=== PATIENT | male | born 1945 | race Caucasian/White ===

== ENCOUNTER → 2017-07-21 | Outpatient (CLI) | payer MEDICARE, BC ==
[~2017-07-21] MED LIST: ALB6.7R INH; ALBU8.5H12 IH; ASPI-1471 PO; ATR80PT PO; AZIT-17 PO; BENZ100C4 PO; BLOO-1061 MC; BLOO-1318 MC; BLOO-1337 MC; CARV25TA78 PO; CEFU500T50 PO; CLOP75TA PO; DIPH0.5D12 IM; EZET10TA41 PO; FLU180SY9 IM; FLU60VIA21 IM ONLY; FLUT16SP19 NS; GLIM2TAB43 PO; GLIP-152 PO; GLIP10TA26 PO; LANC-1147 MC; LANC-1149 MC; LISI-362 PO; METF500T4 PO; MULT-27 PO; NIAC500T85 PO; NIT4 SL; OMEG100027 PO; OMEG500C7 PO; OXYC-373 PO; OXYC-865 PO; PNEI IJ; PNEU0.5D3 IM; PRED-1 PO; PRED5DRO34 OP; PSYL0.5241 PO; ROBC PO; SITA100T PO; VAR05PT PO; VARE1TAB3 PO; [UNRECOGNIZED DRUG - CODE] MC; [UNRECOGNIZED DRUG - CODE] MC
--- NOTE | 2017-07-21 15:19 | RADIOLOGY IMAGING REPORT ---
FACILITY: [facility] PATIENT NAME: Pro Wilkins : 1945 MR: [id number] V: [id number] EXAM DATE: ORDERING PHYSICIAN: GRIFFIN MONTEIRO TECHNOLOGIST: [place] [facility] [place] Pro Wilkins : 1945 Visit/Account:[id number] Date of Sevice: 07/21/2017 EXAMINATION: Right lower extremity duplex Doppler arterial ultrasound HISTORY: Prior arterial surgery to the right leg. PAD. Limb pain. Coldness and numbness. COMPARISON: None. FINDINGS: Peak systolic velocities (cm/s): Common femoral artery: 198 Profunda femoral artery: 90 Proximal SFA: 85 Mid SFA: 20 Distal SFA: 37 Proximal popliteal: 55 Distal popliteal: 39 Peritoneal: 21 Proximal posterior tibial: 33 Mid posterior tibial: 28 Distal posterior tibial: 25 Anterior tibial: 33 Dorsalis pedis: 17 There is significant atherosclerotic plaque throughout the visualized right lower extremity arteries. Interrogated segments do appears patent, without any direct evidence of thrombosis. There is significant drop-off in velocities at the mid SFA with a parvus-tardus waveform suggesting s ignificant SFA stenosis. Waveforms distal to this level are also significantly blunted and monophasic related to the upstream disease. Waveforms of the common femoral artery and proximal SFA are also monophasic which may indicate inflow disease along the iliac arteries. IMPRESSION: 1. Imaged right lower extremity arteries appear patent, but with evidence of significant flow-limitin g disease. 2. There is evidence of flow-limiting stenosis along the SFA with a significant drop-off in velocitie s at the mid SFA and blunted monophasic waveforms distal to this level. 3. Waveforms along the common femoral artery and proximal SFA are also monophasic which may indicate inflow disease along the iliac arteries. Report Dictated By: Edgar Lao MD at 07/21/2017 3:00 PM Report E-Signed By: Edgar Lao MD at 07/21/2017 3:14 PM WSN:[id number]
== END ==
LOC: RAD 11:24
PROVIDERS: ATTEND Internal Medicine Cardiovascular Disease
DX: I70.201 Unspecified atherosclerosis of native arteries of extremities, right leg (principal)

== ENCOUNTER → 2017-12-11 | Outpatient (CLI) | payer MEDICARE, BC | LOC: LAB 09:02 | PROVIDERS: ATTEND Internal Medicine Cardiovascular Disease | DX: I70.219 Atherosclerosis of native arteries of extremities with intermittent claudication, unspecified extremity (principal) | CPT/HCPCS: 36415; 82310; 82374; 82435; 82565; 82947; 84132; 84295; 84520; 85027 ==

== ENCOUNTER → 2018-02-12 | Outpatient (CLI) | payer MEDICARE, BC ==
[~2018-02-12] MED LIST changes: +VARE1TAB4 PO
[2018-02-12 06:36] LABS: PLATELET COUNT, AUTOMATED 196 K/uL (150-450)
[2018-02-12 06:56] LABS: LDL CHOLESTEROL 75 mg/dl
== END ==
LOC: LAB 05:51
PROVIDERS: ATTEND Internal Medicine
DX: Z12.5 Encounter for screening for malignant neoplasm of prostate (principal); E11.9 Type 2 diabetes mellitus without complications; I10 Essential (primary) hypertension; E78.5 Hyperlipidemia, unspecified; I25.10 Atherosclerotic heart disease of native coronary artery without angina pectoris; I73.9 Peripheral vascular disease, unspecified
CPT/HCPCS: 36415; 83036; 84402; 84403; 84443; 84550; 85025; G0103; 82040; 82247; 82310; 82374; 82435; 82465; 82565; 82947; 83718; 84075; 84132; 84153; 84155; 84295; 84450; 84460; 84478; 84520

== ENCOUNTER → 2018-02-16 | Outpatient (REF) | payer MEDICARE, BC | LOC: ZZSENDIN 11:29 | PROVIDERS: ATTEND Internal Medicine | DX: E11.9 Type 2 diabetes mellitus without complications (principal); I10 Essential (primary) hypertension; I25.10 Atherosclerotic heart disease of native coronary artery without angina pectoris | CPT/HCPCS: 82043 ==

== ENCOUNTER → 2018-05-23 | Outpatient (CLI) | payer MEDICARE, BC ==
[~2018-05-23] MED LIST changes: +CIPR-214 PO; +GLIP-179 PO; -GLIP10TA26 PO
== END ==
LOC: LAB 14:26
PROVIDERS: ATTEND Urology
DX: L72.0 Epidermal cyst (principal)
CPT/HCPCS: 88305

== ENCOUNTER → 2018-05-23 | Outpatient (CLI) | payer MEDICARE, BC | LOC: LAB 08:44 | PROVIDERS: ATTEND Urology | DX: Z02.9 Encounter for administrative examinations, unspecified (principal) ==

== ENCOUNTER → 2018-05-24 | Outpatient (CLI) | payer MEDICARE, BC ==
[~2018-05-24] MED LIST changes: +IOPAMIDOL 76% 75 ML INFUS BTL 75 ML ONE
--- NOTE | 2018-05-24 11:42 | RADIOLOGY IMAGING REPORT ---
FACILITY: [facility] [place] PATIENT NAME: Pro Wilkins : 1945 MR: [id number] V: [id number] EXAM DATE: ORDERING PHYSICIAN: YUE SANCHEZ TECHNOLOGIST: Location: [facility] Patient: Pro Wilkins : 1945 Visit/Account:[id number] Date of Sevice: 05/24/2018 EXAMINATION: CT Abdomen W/O Contrast CT Abdomen W/ Contrast CT Pelvis W/O Contrast CT Pelvis W/ Contrast 05/24/2018 8:14 AM HISTORY: N20.0 nephrolithiasis TECHNIQUE: Spiral scans were obtained through the abdomen and pelvis before and during injection of nonionic iodinated intravenous contrast. Contrast: 75 mL of IV Isovue 370. One of the following dose optimization techniques was utilized in the performance of this exam: Autom ated exposure control; adjustment of the mA and/or kV according to the patient's size; or use of an i terative reconstruction technique. Specific details can be referenced in the facility's radiology C T exam operational policy. COMPARISON STUDIES: none. FINDINGS: Liver / biliary: Small gallstones dependently in the gallbladder. Liver is unremarkable. Pancreas: There are a few scattered punctate calcifications which may be postinflammatory. No pancre atic mass. No ductal dilatation. Spleen: Incidental small anterior accessory splenule with a tiny adjacent nodule which is probably a secondary splenule. Adrenal glands: Mild low-density benign-appearing nodularity of the left adrenal. Negative right. Kidneys / retroperitoneum: Bilateral nonobstructive intrarenal nephrolithiasis. Irregular branching probably staghorn calculus in the right lower pole with the largest AP dimension of 3.3 cm. Largest stone on the left is in the lower pole measuring 1.2 cm. No ureteral stone or dilatation on either s samantha. Benign-appearing cortical cysts bilaterally larger on the right than the left including an exop hytic 3.4 cm upper pole cyst and an exophytic 3.6 cm lower pole cyst. Pelvic structures: Coarse benign-appearing calcifications in the prostate. Bladder is mildly thic k-walled. Bowel / peritoneum / mesenteries: Mild diverticulosis of the sigmoid. No acute finding. Normal appe ndix. Vessels: Atherosclerosis including coronary calcification. Infrarenal abdominal aorta dilates slight ly but is not aneurysmal. Bilateral indwelling common iliac artery stents. Stent in the proximal ri ght SFA. Musculoskeletal / Body wall: Degenerative changes in the spine. Small sclerotic posterior left iliac bony foci are indeterminate but likely benign. Lymph node assessment: negative Lower chest: negative IMPRESSION: 1. Bilateral nonobstructive intrarenal nephrolithiasis. Largest stone in the lower pole on the righ t has a staghorn configuration and measures 3.3 cm. 2. Benign-appearing bilateral renal cortical cysts. 3. Cholecystolithiasis. Report Dictated By: Benny Gaston MD at 05/24/2018 10:13 AM Report E-Signed By: Benny Gaston MD at 05/24/2018 11:38 AM SERGION:[email or web address]
== END ==
LOC: CT 02:18
PROVIDERS: ATTEND Urology
DX: Z01.812 Encounter for preprocedural laboratory examination (principal); N28.1 Cyst of kidney, acquired; K80.20 Calculus of gallbladder without cholecystitis without obstruction
CPT/HCPCS: 36415; 74178; 82565; Q9967

== ENCOUNTER → 2018-05-24 | Outpatient (CLI) | payer MEDICARE, BC ==
[~2018-05-24] MED LIST changes: -IOPAMIDOL 76% 75 ML INFUS BTL 75 ML ONE
--- NOTE | 2018-05-24 11:48 | RADIOLOGY IMAGING REPORT ---
FACILITY: [facility] - [place] PATIENT NAME: Pro Wilkins : 1945 MR: [id number] V: [id number] EXAM DATE: ORDERING PHYSICIAN: VLADIMIR STEWART TECHNOLOGIST: Location: [facility] Patient: Pro Wilkins : 1945 Visit/Account:[id number] Date of Sevice: 05/24/2018 CAROTID HISTORY: Bilateral carotid bruit COMPARISON: 06/15/2017 FINDINGS: Grayscale, duplex and color Doppler interrogation of the extracranial carotid and vertebral arteries was performed bilateral. On the right, peak systolic velocities within the common and internal carotid arteries are 88 and 135 cm/sec respectively. There is moderate diffuse calcified atherosclerotic plaque present throughout the proximal internal carotid artery and carotid bulb. Doppler waveforms are within normal limits ho wever.. Antegrade flow within the common, internal and external carotid arteries as well as vertebra l artery. ICA/CCA ratio 0.7. On the left, peak systolic velocities within the common and internal carotid arteries are 123 and 96 cm/sec respectively. There is moderate diffuse calcified atherosclerotic plaque present throughout t he distal common carotid artery and proximal internal carotid artery. Mildly elevated velocities are present but Doppler waveforms are within normal limits.. Antegrade flow within the common, internal and external carotid arteries as well as vertebral artery. ICA/CCA ratio 1.3. IMPRESSION: On the left, by velocity criteria there is less than 50% stenosis present, however, this likely appro aches close to 50% given the degree of calcified plaque present. On the right, moderate plaque is present but no hemodynamically significant stenosis is identified. Velocity criteria are extrapolated from diameter data as defined by the Society of Radiologists in Ul trasound Consensus Conference Radiology 2003; 229;340-346 Report Dictated By: Darryl Barron at 05/24/2018 11:30 AM Report E-Signed By: Darryl Barron at 05/24/2018 11:44 AM WSN:[id number]
== END ==
LOC: US 02:19
PROVIDERS: ATTEND Internal Medicine
DX: I65.23 Occlusion and stenosis of bilateral carotid arteries (principal)
CPT/HCPCS: 93880

== ENCOUNTER → 2018-06-04 | Outpatient (CLI) | payer MEDICARE, BC ==
[2018-06-04 09:53] LABS: PLATELET COUNT, AUTOMATED 208 K/uL (150-450)
--- NOTE | 2018-06-04 09:58 | EKG ---
FACILITY: [facility] PATIENT NAME: KIM GUZMAN : [id number] MR: [id number] V: [id number] EXAM DATE: ORDERING PHYSICIAN: YUE SANCHEZ TECHNOLOGIST: LIZ Test Reason : PRE OP Blood Pressure : / mmHG Vent. Rate : 064 BPM Atrial Rate : 064 BPM P-R Int : 140 ms QRS Dur : 136 ms QT Int : 450 ms P-R-T Axes : 055 -87 073 degrees QTc Int : 464 ms Normal sinus rhythm Left axis deviation Right bundle branch block Abnormal ECG When compared with ECG of 15-MAR-2017 04:24, No significant change was found Confirmed by SHAYY CARTAGENA ([id number]) on 06/04/2018 3:23:06 PM Referred By: LAURA Confirmed By:SHAYY CARTAGENA
== END ==
LOC: LAB 09:29
PROVIDERS: ATTEND Urology
DX: Z01.818 Encounter for other preprocedural examination (principal); R94.31 Abnormal electrocardiogram [ECG] [EKG]
CPT/HCPCS: 36415; 82310; 82374; 82435; 82565; 82947; 83036; 84132; 84295; 84520; 85025; 93005

== ENCOUNTER 2018-06-18 00:18 | Day surgery (SDC) | payer MEDICARE, BC ==
[~2018-06-18] VITALS: Ht 182.9 cm; Wt 78.5 kg
[2018-06-18] VITALS (10 sets, daily range): BP systolic 128–167; BP diastolic 63–97
[~2018-06-18 00:18] MED LIST changes: +OXYC-854 PO
[2018-06-18 06:00] LABS: INR 0.97
[2018-06-18] MEDS ORDERED: LEVOFLOXACIN/D5W*500 MG/100 ML 100 ML IVPB ONE (06:30)
[2018-06-18] MEDS ORDERED: MIDAZOLAM 2 MG/2 ML VIAL IVP PRN (06:30)
[2018-06-18] MEDS ORDERED: FAMOTIDINE 20 MG TAB PO ONE (06:30)
[2018-06-18] MEDS ORDERED: NORMOSOL R SOLN(*) 1000 ML BAG 1,000 ML IV PRN ×2 (06:30)
[2018-06-18] MEDS ORDERED: LIDOCAINE/SOD BICARB 8.4% SYR ID ONE (06:30)
[2018-06-18] MEDS ORDERED: fentaNYL CITR 100 MCG/2 ML AMP ONE ×3 (07:10→09:20)
[2018-06-18] MEDS ORDERED: LIDOCAINE 2% IV 100 MG/5ML SYR ONE (07:10)
[2018-06-18] MEDS ORDERED: PROPOFOL EMUL(*) 10MG/ML 20 ML 20 ML ONE (07:11)
[2018-06-18] MEDS ORDERED: ONDANSETRON 4 MG/2 ML VIAL ONE (07:32)
[2018-06-18] MEDS ORDERED: BELLADONNA ALK/OPIUM 60MG SUPP PR ONE (08:52)
[2018-06-18] MEDS ORDERED: APAP/HYDROCODONE 325/5 TAB PO PRN (09:10)
[2018-06-18] MEDS ORDERED: HYDROmorphone HCL 2 MG/ML SDV IVP PRN (09:10)
--- NOTE | 2018-06-18 09:14 | Urology Discharge Summary ---
Discharge Summary Departure Weight (Pounds): 173 Condition: Improved Follow-Up Labs: Other (KUB IN 1 WEEK) Time Spent: < 30 min Discharge Instructions Home Meds Active Scripts Oxycodone Hcl/Acet 5/325 Mg (ENDOCET 5-325 TABLET) 1 Each Tablet, 1 EACH PO Q3- 6H for PAIN for 3 Days, #6 TAB Prov:YUE SANCHEZ MD 06/14/18 Glimepiride (GLIMEPIRIDE) 2 Mg Tablet, 2 MG PO QDAY, #30 TAB 3 Refills Prov:VLADIMIR STEWART MD 06/13/18 Sitagliptin Phosphate (JANUVIA) 100 Mg Tablet, 1 TAB PO QDAY, #90 TAB 3 Refills Prov:YUE SANCHEZ MD 05/24/18 Atorvastatin (LIPITOR) 80 Mg Tab, 1 TAB PO QDAY, #90 TAB 3 Refills Prov:VLADIMIR STEWART MD 02/19/18 Varenicline Tartrate (CHANTIX) 1 Mg Tablet, 1 MG PO BID, #60 TAB 3 Refills Prov:VLADIMIR STEWART MD 01/16/18 Carvedilol (CARVEDILOL) 25 Mg Tablet, 0.5 TAB PO BID, #180 TAB 3 Refills Prov:VLADIMIR STEWART MD 11/24/17 Lisinopril (LISINOPRIL) 10 Mg Tablet, 1 TAB PO QAM, #90 TAB 3 Refills Prov:VLADIMIR STEWART MD 11/24/17 Lancets (ONE TOUCH DELICA) 1 Each Each, EACH MC TID, #100 10 Refills Use three times a day to test blood sugar Prov:VLADIMIR STEWART MD 11/14/17 Clopidogrel Bisulfate (CLOPIDOGREL) 75 Mg Tablet, 1 TAB PO QAM, #90 TAB 3 Refills Prov:VLADIMIR STEWART MD 11/07/17 One Touch Ultra Test Strips (ONE TOUCH ULTRA TEST STRIPS) 1 Each Strip, 1 EACH MC TID, #100 STRIP 5 Refills use three times a day to test blood sugar Prov:VLADIMIR STEWART MD 10/05/17 Fluticasone Prop 50 Mcg Ns (FLONASE 50 MCG NS) 16 Gm [place].susp, 1 SPRAY NS BID, #1 BOT 4 Refills Prov:VLADIMIR STEWART MD 10/04/17 Metformin Hcl (METFORMIN HCL ER) 500 Mg Tab.er.24, 2 TAB PO BID, #360 TAB 4 Refills Prov:VLADIMIR STEWART MD 10/02/17 Blood-Glucose Meter (ONE TOUCH ULTRA 2) 1 Each Kit, 1 EACH MC TID, #1 use three times a day to test blood sugar Prov:VLADIMIR STEWART MD 05/13/16 Blood Sugar Diagnostic (TRUETEST TEST STRIPS) 1 Each Strip, 1 EACH MC TID, #100 STRIP 10 Refills Prov:VLADIMIR STEWART MD 10/20/15 Nitroglycerin (NITROSTAT) 0.4 Mg Subl, 1 TAB SL Q5MIN PRN for CHEST PAIN, #30 TAB Prov:VLADIMIR STEWART MD 10/12/15 Reported Medications [place]-3 Fatty Acids (FISH OIL CONCENTRATE) 1,000 Mg Capsule, 1000 MG PO TID, CAPSULE 10/19/15 Psyllium Husk (METAMUCIL) 0.52 Gm Capsule, 1 CAP PO BID, CAPSULE 10/12/15 Mu-Vits-Min Th/Lycopene/Lutein (CENTRUM SILVER TABLET) 1 Each Tablet, 1 TAB PO Q PM 10/12/15 Aspirin (ASPIR 81) 81 Mg Tablet., 1 TAB PO QDAY, TAB 04/02/14 Venous Thromboembolism Antithrombotics Is Pt On Any Antithrombotics?: Yes YUE SANCHEZ MD Jun 18, 2018 09:14
--- NOTE | 2018-06-18 09:24 | RADIOLOGY IMAGING REPORT ---
FACILITY: [facility] PATIENT NAME: Pro Wilkins : 1945 MR: [id number] V: [id number] EXAM DATE: ORDERING PHYSICIAN: YUE SANCHEZ TECHNOLOGIST: Location: Patient: Pro Wilkins : 1945 Visit/Account:[id number] Date of Sevice: 06/18/2018 C-ARM FLUORO 1 HR HISTORY: URETEROSCOPY STENT PLACEMENT COMPARISON: CT examination abdomen and pelvis May 24 FINDINGS: DOSE: Air kerma was 24.33 mGy. Fluoroscopic images demonstrate retrograde cannulation right ureter. Instrumentation is noted with i ntervention at the level of the stones in the right collecting system. Final images demonstrate uret eral stent placement. IMPRESSION: Intraprocedural fluoroscopy Report Dictated By: Keanu Silva MD at 06/18/2018 9:17 AM Report E-Signed By: Keanu Silva MD at 06/18/2018 9:19 AM WSN:[id number]
[2018-06-18] MEDS ORDERED: KETOROLAC 30 MG/ML VIAL IVP SCH (12:00)
--- NOTE | 2018-06-18 12:14 | OPERATIVE REPORT 1 ---
EVENT DATE: June 18, 2018 SURGEON: Todd Cuevas MD ANESTHESIOLOGIST: [*] ANESTHESIA: LMA general. WINDING INSPECTOR: None. PREOPERATIVE DIAGNOSIS Right renal calculi. POSTOPERATIVE DIAGNOSIS Right renal calculi. PROCEDURE PERFORMED Right ureteroscopic laser lithotripsy with stone extraction and stent placement. DESCRIPTION OF PROCEDURE The patient was brought to the operating room and after the adequate induction of general anesthesia, he was placed in the relaxed dorsal lithotomy position. Genitalia were scrubbed, prepped and draped in a sterile fashion. The bladder was examined with a rigid cystoscope. There were no mucosal abnormalities seen within the bladder. A sensor wire was advanced into the right ureteral orifice and its position confirmed in the right renal pelvis fluoroscopically. I used a 46 cm ureteral access sheath to access the upper tract, which was confirmed fluoroscopically as well. Within the kidney, there was a smaller stone in the upper pole and then a large collection of stones in the lower pole of the right kidney. Using the flexible ureteroscope and the 200 micron fiber, the stones were sequentially fragmented and then ablated using the dusting setting of the laser. Several fragments were withdrawn and sent for stone analysis. At the end of the procedure, the ureteral access sheath was removed over a sensor wire and backloaded through the cystoscope. A 26 mm 7-Estonian JJ stent with pullout string was then positioned cystoscopically and fluoroscopically. A B and O suppository was administered. He was aroused from anesthesia and transported to PACU in stable condition. MARI
[2018-06-18] MEDS ORDERED: OXYC1TAB78 PO ×2 (12:37→14:38)
[2018-06-19] MEDS ORDERED: HYDR4TAB59 PO (14:20)
== END 2018-06-18 10:10 | disposition home or self-care (01) ==
LOC: OR 00:18
PROVIDERS: ATTEND Urology
DX: N20.0 Calculus of kidney (principal); I11.0 Hypertensive heart disease with heart failure; I50.9 Heart failure, unspecified; I25.2 Old myocardial infarction; E11.9 Type 2 diabetes mellitus without complications; Z79.84 Long term (current) use of oral hypoglycemic drugs; F17.200 Nicotine dependence, unspecified, uncomplicated
CPT/HCPCS: 36415; 36416; 52356; 76000; 82365; 82948; 85610; 88300; A9270; C1769; C1894; C2617; J1885; J1956; J2001; J2405; J2704; J3010

== ENCOUNTER → 2018-06-21 | Outpatient (CLI) | payer MEDICARE, BC ==
[~2018-06-21] MED LIST changes: +HYDR4TAB59 PO; +OXYC1TAB78 PO
--- NOTE | 2018-06-21 11:55 | RADIOLOGY IMAGING REPORT ---
FACILITY: [facility] - [place] PATIENT NAME: Pro Wilkins : 1945 MR: [id number] V: [id number] EXAM DATE: ORDERING PHYSICIAN: YUE SANCHEZ TECHNOLOGIST: Location: [facility] [place] Patient: Pro Wilkins : 1945 Visit/Account:[id number] Date of Sevice: 06/21/2018 Technique: KUB SINGLE VIEW ABDOMEN HISTORY: kidney stones - stent placement Comparison studies: CT abdomen and pelvis May 24, 2018 FINDINGS: Bilateral nephrolithiasis is noted; not significantly changed from the comparison exam. Pr esent is a right-sided internal ureteral stent. 8 mm calcification overlies the right hemisacral bod y which is probably projectional; however, ureterolithiasis is difficult to fully exclude. Bilateral common iliac artery stents are also noted. IMPRESSION: 1. Bilateral nephrolithiasis as described above. Report Dictated By: Keenan Pearson DO at 06/21/2018 11:44 AM Report E-Signed By: Keenan Pearson DO at 06/21/2018 11:50 AM WSN:[id number]
== END ==
LOC: RAD 10:22
PROVIDERS: ATTEND Urology
DX: N20.0 Calculus of kidney (principal)
CPT/HCPCS: 74018

== ENCOUNTER → 2018-10-26 | Outpatient (CLI) | payer MEDICARE, BC ==
[~2018-10-26] MED LIST changes: -DIPH0.5D12 IM; +DIPH0.5S2 IM; +FLU180SY11 IM; +LIDO5T TP
[2018-10-26 10:47] LABS: PLATELET COUNT, AUTOMATED 229 K/uL (150-450)
[2018-10-26 11:27] LABS: LDL CHOLESTEROL 63 mg/dl
== END ==
LOC: LAB 10:23
PROVIDERS: ATTEND Internal Medicine
DX: I10 Essential (primary) hypertension (principal); E78.5 Hyperlipidemia, unspecified; E11.9 Type 2 diabetes mellitus without complications; R05 Cough; R09.02 Hypoxemia
CPT/HCPCS: 36415; 81001; 82040; 82247; 82310; 82374; 82435; 82465; 82565; 82947; 83036; 83718; 84075; 84132; 84155; 84295; 84443; 84450; 84460; 84478; 84520; 85025

== ENCOUNTER → 2018-12-14 | Outpatient (CLI) | payer MEDICARE, BC ==
--- NOTE | 2018-12-14 10:23 | RADIOLOGY IMAGING REPORT ---
FACILITY: [facility] [place] PATIENT NAME: Pro Wilkins : 1945 MR: [id number] V: [id number] EXAM DATE: ORDERING PHYSICIAN: YUE SANCHEZ TECHNOLOGIST: Location: [facility] [place] Patient: Pro Wilkins : 1945 Visit/Account:[id number] Date of Sevice: 12/14/2018 Exam type: KUB SINGLE VIEW ABDOMEN History: kidney stones Comparison: July 05, 2018. Findings: Multiple calcifications project over the renal shadows bilaterally. The two largest calculi projecti ng over the left renal shadow measure 1.4 cm in the inferior pole and 1.1 cm upper pole. There is a collection of calcifications in the lower pole of the right kidney measuring 1.2 cm collectively in a ddition to other smaller scattered calcifications. There are bilateral iliac stents in place. Extensive calcination occasions are noted in the vas defe rens bilaterally. Bowel gas pattern is nonspecific IMPRESSION: 1. Bilateral nephrolithiasis Report Dictated By: Chantell Craven MD at 12/14/2018 10:16 AM Report E-Signed By: Chantell Craven MD at 12/14/2018 10:18 AM WSN:[email or web address]
== END ==
LOC: RAD 08:23
PROVIDERS: ATTEND Urology
DX: N20.0 Calculus of kidney (principal)
CPT/HCPCS: 74018

== ENCOUNTER → 2019-02-16 | Outpatient (CLI) | payer MEDICARE, BC | LOC: LAB 08:48 | PROVIDERS: ATTEND Internal Medicine Cardiovascular Disease | DX: I70.209 Unspecified atherosclerosis of native arteries of extremities, unspecified extremity (principal); I25.10 Atherosclerotic heart disease of native coronary artery without angina pectoris; I10 Essential (primary) hypertension; R09.89 Other specified symptoms and signs involving the circulatory and respiratory systems; E11.51 Type 2 diabetes mellitus with diabetic peripheral angiopathy without gangrene; F17.210 Nicotine dependence, cigarettes, uncomplicated | CPT/HCPCS: 36415; 82465; 83718; 84478 ==